=== PATIENT | female | born 1995 | race Two or more races ===

== ENCOUNTER 2023-04-06 02:19 | Emergency (ER) | payer OTHER ==
[2023-04-06 02:33] VITALS: BMI 35.4
[2023-04-06] MEDS ORDERED: SODIUM CHLORIDE 0.9% 500 ML INFUS.BAG IV ONE (03:07)
[2023-04-06] MEDS ORDERED: ACETAMINOPHEN 1000 MG/100 ML BAG IVPB ONE (03:07)
[2023-04-06] MEDS ORDERED: ACETAMINOPHEN INJECTION 100 ML IVPB ONE (03:33)
[2023-04-06 03:58] LABS: BASO % 0.2 % (0-2.0); EOS % 0.8 % (0-4.5); HEMATOCRIT 30.1 % (32.4-45.2); HEMOGLOBIN 10.1 GM/dL (10.7-15.3); LYMPH % 15.5 % (8-40); MCH 27.8 pg (25.7-33.7); MCHC 33.5 g/dl (32.0-36.0); MEAN CELL VOLUME 82.8 fl (80-96); MEAN PLT VOLUME 9.6 fl (7.5-11.1); NEUT % 78.5 % (42.8-82.8); PLATELET COUNT 221 10^3/uL (134-434); RBC 3.63 M/mm3 (3.60-5.2); RDW 15.5 % (11.6-15.6); WHITE BLOOD COUNT 9.7 K/mm3 (4.0-10.0)
[2023-04-06 04:00] LABS: POTASSIUM 3.8 mmol/L (3.5-5.1)
[2023-04-06 04:02] LABS: CALCIUM 7.9 mg/dL (8.5-10.1)
[2023-04-06 04:03] LABS: ALBUMIN 2.8 g/dl (3.4-5.0); BLOOD UREA NITROGEN 4.1 mg/dL (7-18)
[2023-04-06 04:06] LABS: CREATININE 0.5 mg/dL (0.55-1.3)
[2023-04-06 04:08] LABS: BILIRUBIN,TOTAL 0.3 mg/dL (0.2-1); TOT PROT 6.2 g/dl (6.4-8.2)
[2023-04-06 06:16] LABS: PH,URINE 5.5 (5.0-8.0); URINE APPEARANCE CLOUDY; URINE BILIRUBIN NEGATIVE (NEGATIVE); URINE COLOR YELLOW; URINE GLUCOSE (UA) NEGATIVE (NEGATIVE); URINE KETONE 3+ (NEGATIVE); URINE LEUK ESTERASE NEGATIVE (NEGATIVE); URINE NITRITE NEGATIVE (NEGATIVE); URINE PROTEIN NEGATIVE (NEGATIVE)
[2023-04-06 06:30] VITALS: RESP 18; TEMP 98.8
[2023-04-06 11:39] VITALS: BP 101/58; PULSE 66
== END 2023-04-06 11:39 | disposition home or self-care (01) ==
LOC: JER 02:19
PROC: 3E033NZ Introduction of Analgesics, Hypnotics, Sedatives into Peripheral Vein, Percutaneous Approach (ICD-10-PCS; principal; 2023-04-06)
DX: O20.9 Hemorrhage in early pregnancy, unspecified (principal); O30.001 Twin pregnancy, unspecified number of placenta and unspecified number of amniotic sacs, first trimester; Z3A.17 17 weeks gestation of pregnancy
CPT/HCPCS: 36415; 76810-TC; 80053; 81003; 84702; 85025; 86850; 86900; 86901; 87086; 93005; 93010; 99285-25

== ENCOUNTER 2023-07-19 23:08 | Emergency (ER) | payer SELFPAY ==
[2023-07-19 23:18] VITALS: BP 131/89; PULSE 92; RESP 20; TEMP 98; BMI 31.8
== END 2023-07-19 23:44 | disposition left against medical advice (07) ==
LOC: JER 23:08 → JERFT 23:08
DX: R51.9 Headache, unspecified (principal); Y04.0XXA Assault by unarmed brawl or fight, initial encounter
CPT/HCPCS: 99281-25